=== PATIENT | female | born 1965 | race Two or more races ===

== ENCOUNTER 2016-11-24 15:56 | Emergency (ER) | payer MEDICAID ==
[~2016-11-24] VITALS: Ht 160 cm; Wt 51.3 kg
--- NOTE | 2016-11-24 16:12 | NUR ---
AAOX3, CAME TO ER C/O PELVIC PAIN, HX OF OVARIAN CYST, WORSE IN THE LAST 3 WEEKS. PAIN AGGRAVATE WHEN SITTING OR STANDING POSITION FOR ABOUT 10 MINUTES. RELIEVED BY LAYING DOWN ON THE BED. SKIN IS WARM AND DRY. PLACED ON HOSPITAL GOWN. AWAITING MD FOR EVAL.
--- NOTE | 2016-11-24 16:14 | NUR ---
Note kinone in EDM - 11/24/16 at 1617 by TERI AAOX3, CAME TO ER C/O PELVIC PAIN, HX OF OVARIAN CYST, WORSE IN THE LAST 3 WEEKS. PAIN AGGRAVATE WHEN SITTING OR STANDING POSITION FOR ABOUT 10 MINUTES. RELIEVE DURIN LAYING DOWN ON THE BED. SKIN IS WARM AND DRY. PLACED ON HOSPITAL GOWN. AWAITING MD FOR JG.
[2016-11-24] MEDS ORDERED: ONDANSETRON 4 MG TAB.RAPDIS ONE (16:56)
[2016-11-24] MEDS ORDERED: HYDROCODONE/APAP 10/325MG 1 EA TABLET ONE (16:56)
[2016-11-24] MEDS ORDERED: ONDANSETRON 4 MG TAB.RAPDIS SL ONE (17:00)
[2016-11-24] MEDS ORDERED: HYDROCODONE/APAP 10/325MG 1 EA TABLET PO ONE (17:00)
--- NOTE | 2016-11-24 18:00 | NUR ---
PAPER INSERTER AT BEDSIDE
--- NOTE | 2016-11-24 18:57 | NUR ---
URINE SAMPLE COLLECTED SENT TO LAB
--- NOTE | 2016-11-24 19:09 | NUR ---
Gurwinder hu in [facility] - 11/24/16 at 1909 by AURELIA Patient discharged to home in stable condition. Written and verbal after care instructions given. Patient verbalizes understanding of instruction.
[2016-11-24 19:14] LABS: APPEARANCE,URINE CLEAR (CLEAR); BILIRUBIN,URINE NEGATIVE (NEGATIVE); BLOOD, URINE TRACE Ery/uL (NEGATIVE); COLOR,URINE YELLOW (YELLOW); KETONES,URINE NEGATIVE (NEGATIVE); LEUKOCYTE ESTERASE ,URINE 2+ (NEGATIVE); NITRITE, URINE NEGATIVE (NEGATIVE); PH,URINE 7.5 (5.0-8.0); PROTEIN,URINE NEGATIVE (NEGATIVE); UGLUCOSE NEGATIVE (NEGATIVE); UROBILINOGEN,URINE 0.2 EU/dL (0.2)
[2016-11-24 19:16] LABS: BACTERIA,URINE Few /HPF (None Seen); RBC,URINE 0-2 /HPF (0-2); SQUAMOUS EPITHELIAL CELL,UR Few /HPF (None Seen); WBC,URINE 21-50 /HPF (0-3)
--- NOTE | 2016-11-24 20:21 | NUR ---
Patient discharged to home in stable condition. Written and verbal after care instructions given. Patient verbalizes understanding of instruction. Patient is ambulatory with steady gait, no further complaints. Instructed not to drive, accompanied by familiy.
[2016-11-24 20:22] VITALS: BP 120/88
== END 2016-11-24 20:22 | disposition home or self-care (01) ==
LOC: ER 15:58
DX: N39.0 Urinary tract infection, site not specified (principal); N83.209 Unspecified ovarian cyst, unspecified side; E78.00 Pure hypercholesterolemia, unspecified; D25.9 Leiomyoma of uterus, unspecified
CPT/HCPCS: 76856; 81001; 87086; 99285; A4606; Q0162; Z7610; 81000-TC